=== PATIENT | male | born 1995 | race Hispanic/Latino ===

== ENCOUNTER 2021-11-30 11:39 | Observation (INO) | payer OTHER ==
[~2021-11-30] VITALS: Ht 188 cm; Wt 111.5 kg
[~2021-11-30 11:39] MED LIST: PROAAER10 INH
[2021-11-30 11:54] VITALS: O2SAT 94
[2021-11-30] MEDS ORDERED: ALBUTEROL 90 MCG/ACT 8GM HFA INHALER INH ONE (11:55)
[2021-11-30] MEDS ORDERED: methylPREDNISolone 125MG 2ML VIAL IV ONE (11:55)
[2021-11-30] MEDS: IPRATROPIUM 0.5MG/ALBUTEROL 2.5MG INH SOL UD 3ML (DUONEB) NEB PRN ×6 (12:03→14:33)
[2021-11-30 12:25] LABS: BASO # 0.1 10^3/uL (0.0-0.2); BASO % 0.8 % (0.0-1.0); EOS # 1.9 10^3/uL (0.0-0.5); EOS % 18.2 % (0.0-3.0); HEMOGLOBIN 15.4 g/dl (13.5-17.5); LYMPH # 3.1 10^3/uL (1.5-5.0); LYMPH % 29.6 % (24.0-44.0); MEAN CORPUSCULAR HEMOGLOBIN 29.7 pg (27.0-33.0); MEAN CORPUSCULAR HGB CONC 34.2 g/dl (32.0-36.5); MEAN CORPUSCULAR VOLUME 86.7 fl (80.0-96.0); MONO # 0.8 10^3/uL (0.0-0.8); MONO % 7.5 % (2.0-8.0); NEUTROPHILS # 4.6 10^3/uL (1.5-8.5); NEUTROPHILS % 43.6 % (36.0-66.0); PLATELET COUNT, AUTOMATED 272 10^3/uL (150-450); RED BLOOD COUNT 5.19 10^6/uL (4.30-6.10); WHITE BLOOD COUNT 10.6 10^3/uL (4.0-10.0)
[2021-11-30 12:56] LABS: ALT/SGPT 61 U/L (12-78); BILIRUBIN,DIRECT 0.1 MG/DL (0.0-0.2); BILIRUBIN,TOTAL 0.4 MG/DL (0.2-1.0); BLOOD UREA NITROGEN 15 MG/DL (7-18); CALCIUM LEVEL 9.1 MG/DL (8.5-10.1); CARBON DIOXIDE LEVEL 27 MEQ/L (21-32); CHLORIDE LEVEL 107 MEQ/L (98-107); CREATININE FOR GFR 0.86 MG/DL (0.70-1.30); GLOMERULAR FILTRATION RATE > 60.0 (>60); GLUCOSE, FASTING 93 MG/DL (70-100); LIPASE 101 U/L (73-393); POTASSIUM SERUM 4.4 MEQ/L (3.5-5.1); SODIUM LEVEL 139 MEQ/L (136-145); TOTAL PROTEIN 7.9 GM/DL (6.4-8.2)
[2021-11-30] MEDS ORDERED: ISOVUE-370 76% 100ML VIAL As Ordered ONE (13:01)
[2021-11-30 13:09] LABS: RSV AMPLIFICATION NEGATIVE (NEGATIVE)
[2021-11-30 13:44] LABS: MAGNESIUM LEVEL 2.2 MG/DL (1.8-2.4)
[2021-11-30 14:11] LABS: CK-MB VALUE MASS 2.5 NG/ML (<3.6); MB/CK RELATIVE INDEX 0.55 (< OR =4)
[2021-11-30] MEDS ORDERED: NS 1,000 ML IV ONE (14:40)
[2021-11-30] MEDS ORDERED: ACETAMINOPHEN TAB 650MG DOSE (2X325MG) PO PRN (15:15)
[2021-11-30] MEDS ORDERED: ALBUTEROL SULFATE 2.5 MG/0.5 ML INH NEB SOLN NEB PRN (15:15)
[2021-11-30] MEDS ORDERED: HOME MED LIST COMPLETE! XX SCH (15:20)
[2021-11-30] MEDS ORDERED: ALBU8.5H INH (15:20)
[2021-11-30 16:00] VITALS: BP 136/66
[2021-11-30 18:00] VITALS: BP 134/67
[2021-11-30] MEDS: IPRATROPIUM 0.5MG/ALBUTEROL 2.5MG INH SOL UD 3ML (DUONEB) NEB SCH (19:15)
[2021-11-30] MEDS: BUDESONIDE 180MCG INHALER (PULMICORT FLEXHALER) INH SCH (19:16)
[2021-11-30] MEDS ORDERED: ENOXAPARIN 40MG/0.4ML SYRINGE (J1650 PER 10MG) SC SCH (21:00)
[2021-11-30] MEDS: methylPREDNISolone 40MG 1ML VIAL IV SCH (21:09)
[2021-12-01] MEDS: IPRATROPIUM 0.5MG/ALBUTEROL 2.5MG INH SOL UD 3ML (DUONEB) NEB SCH ×2 (00:44→07:19)
[2021-12-01] MEDS: methylPREDNISolone 40MG 1ML VIAL IV SCH (03:59)
[2021-12-01 04:09] VITALS: BP 132/66
[2021-12-01 05:01] LABS: HEMATOCRIT 41.5 % (42.0-52.0); HEMOGLOBIN 14.3 g/dl (13.5-17.5); MEAN CORPUSCULAR HEMOGLOBIN 29.9 pg (27.0-33.0); MEAN CORPUSCULAR HGB CONC 34.5 g/dl (32.0-36.5); MEAN CORPUSCULAR VOLUME 86.8 fl (80.0-96.0); PLATELET COUNT, AUTOMATED 246 10^3/uL (150-450); RED BLOOD COUNT 4.78 10^6/uL (4.30-6.10); WHITE BLOOD COUNT 15.3 10^3/uL (4.0-10.0)
[2021-12-01 05:23] LABS: BLOOD UREA NITROGEN 13 MG/DL (7-18); CALCIUM LEVEL 9.2 MG/DL (8.5-10.1); CARBON DIOXIDE LEVEL 26 MEQ/L (21-32); CHLORIDE LEVEL 106 MEQ/L (98-107); CREATININE FOR GFR 0.78 MG/DL (0.70-1.30); GLOMERULAR FILTRATION RATE > 60.0 (>60); GLUCOSE, FASTING 134 MG/DL (70-100); MAGNESIUM LEVEL 2.1 MG/DL (1.8-2.4); POTASSIUM SERUM 4.1 MEQ/L (3.5-5.1); SODIUM LEVEL 137 MEQ/L (136-145)
[2021-12-01] MEDS: BUDESONIDE 180MCG INHALER (PULMICORT FLEXHALER) INH SCH (07:18)
[2021-12-01] MEDS ORDERED: BUDE180INH INH (07:41)
[2021-12-01] MEDS ORDERED: PRED20TA PO (07:41)
[2021-12-01] MEDS ORDERED: FLUT44IN INH (08:50)
[2021-12-01] MEDS ORDERED: predniSONE 20 MG TAB PO SCH (09:00)
[2021-12-02] MEDS ORDERED: predniSONE 20 MG TAB PO SCH (09:00)
== END 2021-12-01 10:32 | disposition home or self-care (01) ==
LOC: M ED 11:39 → M ED INP 11:40 → ENRESERV 15:40 → M MSPAV 16:30
PROVIDERS: ADMIT Family Medicine; ATTEND Family Medicine
DX: J45.41 Moderate persistent asthma with (acute) exacerbation (principal); R91.8 Other nonspecific abnormal finding of lung field; R07.9 Chest pain, unspecified; Z87.09 Personal history of other diseases of the respiratory system; Z79.51 Long term (current) use of inhaled steroids; Z79.52 Long term (current) use of systemic steroids; Z83.3 Family history of diabetes mellitus
CPT/HCPCS: 36415; 71046; 71275; 80048; 80076; 82550; 82553; 83690; 83735; 84145; 84484; 85025; 85027; 85379; 87631; 93005; 93041; 94640; 94760; 96361; 96372; 96374; 96376; 99285; J1650; J2920; J2930; Q9967

== ENCOUNTER 2022-11-10 15:26 | Emergency (ER) | payer OTHER ==
[~2022-11-10] VITALS: Ht 188 cm; Wt 110.3 kg
[~2022-11-10 15:26] MED LIST changes: +ALBU8.5H INH; +BUDE180INH INH; +FLUT44IN INH; +PRED20TA PO
[2022-11-10] MEDS ORDERED: LEXA1TAB (15:34)
[2022-11-10] MEDS: COMBIVENT RESPIMAT 100-20MCG INHALER 4GM INH SCH ×2 (16:36→16:37)
[2022-11-10] MEDS ORDERED: predniSONE 20 MG TAB PO ONE (17:10)
[2022-11-10] MEDS ORDERED: PRED20TA PO (17:11)
[2022-11-10] MEDS ORDERED: VENTAER INH (17:11)
[2022-11-10 17:19] VITALS: BP 130/67
== END 2022-11-10 17:29 | disposition home or self-care (01) ==
LOC: M ED 15:26
DX: J45.901 Unspecified asthma with (acute) exacerbation (principal); J98.01 Acute bronchospasm
CPT/HCPCS: 71045; 94640; 99283; J7512

== ENCOUNTER 2023-03-23 16:23 | Inpatient (IN) | payer OTHER ==
[~2023-03-23] VITALS: Ht 188 cm; Wt 115.9 kg
[~2023-03-23 16:23] MED LIST changes: +LEXA1TAB; +VENTAER INH
[2023-03-23] MEDS ORDERED: MED REC IN PROGRESS XX SCH (18:05)
[2023-03-23] MEDS ORDERED: ADVA45AE PO (18:10)
[2023-03-23] MEDS ORDERED: FLUO20CA22 PO (18:10)
[2023-03-23] MEDS ORDERED: VITA1CAP25 PO (18:10)
[2023-03-23] MEDS ORDERED: HOME MED LIST COMPLETE! XX SCH (18:15)
[2023-03-23 18:32] LABS: HEMATOCRIT 46.6 % (42.0-52.0); HEMOGLOBIN 16.1 g/dl (13.5-17.5); MEAN CORPUSCULAR HEMOGLOBIN 29.8 pg (27.0-33.0); MEAN CORPUSCULAR HGB CONC 34.5 g/dl (32.0-36.5); MEAN CORPUSCULAR VOLUME 86.1 fl (80.0-96.0); PLATELET COUNT, AUTOMATED 252 10^3/uL (150-450); RED BLOOD COUNT 5.41 10^6/uL (4.30-6.10); WHITE BLOOD COUNT 8.5 10^3/uL (4.0-10.0)
[2023-03-23 18:34] LABS: AMPHETAMINES LEVEL URINE NEGATIVE (NEGATIVE); BARBITURATES URINE NEGATIVE (NEGATIVE); BENZODIAZEPINES URINE NEGATIVE (NEGATIVE); CANNABINOIDS URINE POSITIVE (NEGATIVE); COCAINE METABOLITE URINE NEGATIVE (NEGATIVE); METHADONE URINE NEGATIVE (NEGATIVE); OPIATES URINE NEGATIVE (NEGATIVE); PHENCYCLIDINE URINE NEGATIVE (NEGATIVE)
[2023-03-23 18:48] LABS: ETHYL ALCOHOL (ETHANOL) < 0.003 % (0.000-0.010)
[2023-03-23 18:50] LABS: ACETAMINOPHEN LEVEL < 2.0 UG/ML (10.0-20.0); ALBUMIN 4.6 G/DL (3.2-5.2); ALKALINE PHOSPHATASE 70 U/L (46-116); ALT/SGPT 82 U/L (7.0-40); AST/SGOT 52 U/L (<34); BILIRUBIN,DIRECT 0.2 MG/DL (<0.4); BILIRUBIN,TOTAL 0.5 MG/DL (0.3-1.2); BLOOD UREA NITROGEN 17 MG/DL (9-23); CALCIUM LEVEL 10.2 MG/DL (8.5-10.1); CARBON DIOXIDE LEVEL 24 MMOL/L (20-31); CHLORIDE LEVEL 103 MMOL/L (98-107); CREATININE FOR GFR 0.69 MG/DL (0.70-1.30); GLOMERULAR FILTRATION RATE > 60.0 (>60); GLUCOSE, FASTING 138 MG/DL (60-100); POTASSIUM SERUM 4.9 MMOL/L (3.5-5.1); SALICYLATE LEVEL < 3.0 MG/DL (<30); SODIUM LEVEL 137 MMOL/L (136-145); TOTAL PROTEIN 8.4 G/DL (5.7-8.2)
[2023-03-23 18:53] LABS: THYROID STIMULATING HORMONE 0.317 uIU/ML (0.55-4.78)
[2023-03-23] MEDS ORDERED: traZODone 50 MG TAB PO PRN (20:25)
[2023-03-23] MEDS ORDERED: IBUPROFEN 400MG TAB PO PRN (20:25)
[2023-03-23] MEDS ORDERED: MOM 30ML SUSPENSION UDC PO PRN (20:25)
[2023-03-23] MEDS ORDERED: ACETAMINOPHEN TAB 650MG DOSE (2X325MG) PO PRN (20:25)
[2023-03-23] MEDS ORDERED: diphenhydrAMINE 25MG CAP PO PRN (20:25)
[2023-03-23] MEDS ORDERED: MAALOX 30 ML SUSP *UDC PO PRN (20:25)
[2023-03-23 22:42] VITALS: BP 125/66; TEMP 97.4; O2SAT 96
[2023-03-24 06:28] VITALS: BP 119/58; TEMP 97.9; O2SAT 97
[2023-03-24] MEDS ORDERED: ALBUTEROL 90 MCG/ACT 8GM HFA INHALER INH PRN (07:45)
[2023-03-24] MEDS ORDERED: FLUoxetine 20MG CAP PO SCH (09:00)
[2023-03-24] MEDS: ADVAIR HFA 45/21MCG INHALER INH SCH ×2 (09:35→20:59)
[2023-03-24] MEDS: buPROPion **XL** TABLET 150MG (WELLBUTRIN XL) PO SCH (11:13)
[2023-03-24 17:18] VITALS: BP 123/59; TEMP 97.4; O2SAT 96
[2023-03-25 06:35] VITALS: BP 129/63; TEMP 96.6; O2SAT 97
[2023-03-25] MEDS: buPROPion **XL** TABLET 150MG (WELLBUTRIN XL) PO SCH (08:31)
[2023-03-25] MEDS: ADVAIR HFA 45/21MCG INHALER INH SCH ×2 (08:32→21:22)
[2023-03-25 17:11] VITALS: BP_SYST 134; BP_SYST 169; BP_DIAS 84; BP_DIAS 93; TEMP 97.3; O2SAT 97
[2023-03-26 06:52] VITALS: BP 132/64; TEMP 96.4; O2SAT 100
[2023-03-26] MEDS ORDERED: BUPR150T12 PO (08:10)
[2023-03-26] MEDS: ADVAIR HFA 45/21MCG INHALER INH SCH (08:14)
[2023-03-26] MEDS: buPROPion **XL** TABLET 150MG (WELLBUTRIN XL) PO SCH (08:14)
== END 2023-03-26 11:56 | disposition home or self-care (01) | DRG 881 ==
LOC: EDBD 16:23 → M ED 16:23 → M ED INP 20:22 → M PSY 22:37
PROVIDERS: ADMIT Student in an Organized Health Care Education/Training Program; ATTEND Student in an Organized Health Care Education/Training Program
DX: F32.A Depression, unspecified (principal); R45.851 Suicidal ideations; R68.82 Decreased libido; Z81.8 Family history of other mental and behavioral disorders; Z62.811 Personal history of psychological abuse in childhood; Z91.82 Personal history of military deployment; Z81.1 Family history of alcohol abuse and dependence; Z79.899 Other long term (current) drug therapy

== ENCOUNTER → 2023-04-21 | Outpatient (REF) | payer OTHER ==
[~2023-04-21] MED LIST changes: +ADVA45AE PO; +BUPR150T12 PO; +FLUO20CA22 PO; +VITA1CAP25 PO
[2023-04-21 17:38] LABS: BASO % 0.4 % (0.0-1.0); EOS # 0.1 10^3/uL (0.0-0.5); EOS % 1.5 % (0.0-3.0); EOSINOPHIL,TOTAL CALCULATED 100 mm3 (0-740); HEMATOCRIT 46.2 % (42.0-52.0); LYMPH # 2.6 10^3/uL (1.5-5.0); LYMPH % 27.2 % (24.0-44.0); MEAN CORPUSCULAR HEMOGLOBIN 29.6 pg (27.0-33.0); MEAN CORPUSCULAR HGB CONC 34.6 g/dl (32.0-36.5); MEAN CORPUSCULAR VOLUME 85.4 fl (80.0-96.0); MONO # 0.8 10^3/uL (0.0-0.8); MONO % 8.1 % (2.0-8.0); NEUTROPHILS % 62.6 % (36.0-66.0); PLATELET COUNT, AUTOMATED 285 10^3/uL (150-450); RED BLOOD COUNT 5.41 10^6/uL (4.30-6.10); WHITE BLOOD COUNT 9.5 10^3/uL (4.0-10.0)
== END ==
LOC: M LAB REF 16:47
PROVIDERS: ATTEND Internal Medicine Pulmonary Disease
DX: J45.50 Severe persistent asthma, uncomplicated (principal)

== ENCOUNTER 2023-05-27 22:03 | Emergency (ER) | payer OTHER ==
[~2023-05-27] VITALS: Ht 188 cm; Wt 113.6 kg
[2023-05-27 23:29] LABS: BASO % 0.4 % (0.0-1.0); EOS # 0.5 10^3/uL (0.0-0.5); EOS % 5.9 % (0.0-3.0); HEMATOCRIT 42.4 % (42.0-52.0); HEMOGLOBIN 14.5 g/dl (13.5-17.5); LYMPH # 2.9 10^3/uL (1.5-5.0); LYMPH % 38.1 % (24.0-44.0); MEAN CORPUSCULAR HEMOGLOBIN 29.6 pg (27.0-33.0); MEAN CORPUSCULAR HGB CONC 34.2 g/dl (32.0-36.5); MEAN CORPUSCULAR VOLUME 86.5 fl (80.0-96.0); MONO # 0.8 10^3/uL (0.0-0.8); NEUTROPHILS # 3.5 10^3/uL (1.5-8.5); NEUTROPHILS % 45.5 % (36.0-66.0); PLATELET COUNT, AUTOMATED 243 10^3/uL (150-450); WHITE BLOOD COUNT 7.7 10^3/uL (4.0-10.0)
[2023-05-27 23:45] LABS: BLOOD UREA NITROGEN 14 MG/DL (9-23); CARBON DIOXIDE LEVEL 27 MMOL/L (20-31); CHLORIDE LEVEL 106 MMOL/L (98-107); CREATININE FOR GFR 0.86 MG/DL (0.70-1.30); GLOMERULAR FILTRATION RATE > 60.0 (>60); GLUCOSE, FASTING 94 MG/DL (60-100); POTASSIUM SERUM 3.7 MMOL/L (3.5-5.1); SODIUM LEVEL 142 MMOL/L (136-145)
[2023-05-27 23:47] LABS: CPK CREATINE PHOSPHOKINASE 322 U/L (46-171); MB/CK RELATIVE INDEX 0.31 (< OR =4)
[2023-05-28 01:34] LABS: MB/CK RELATIVE INDEX 0.32 (< OR =4)
[2023-05-28 02:34] VITALS: BP 128/70; TEMP 97.5; O2SAT 98
== END 2023-05-28 04:19 | disposition left against medical advice (07) ==
LOC: M ED 22:03 → EDBD 22:03 → M ED 05-28 04:19
DX: Z53.21 Procedure and treatment not carried out due to patient leaving prior to being seen by health care provider (principal)